=== PATIENT | female | born 1995 | race Caucasian/White ===

== ENCOUNTER 2018-03-21 09:28 | Emergency (ER) | payer OTHER ==
[2018-03-21 09:36] VITALS: BP 117/74
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
[2018-03-21] MEDS ORDERED: LET GEL TOPICAL 1 EA SYR TP ONE ×2 (10:21→10:23)
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
== END 2018-03-21 11:53 | disposition home or self-care (01) ==
DX: S00.83XA Contusion of other part of head, initial encounter (principal); S80.211A Abrasion, right knee, initial encounter; S40.212A Abrasion of left shoulder, initial encounter; W17.89XA Other fall from one level to another, initial encounter; Y93.83 Activity, rough housing and horseplay; R93.0 Abnormal findings on diagnostic imaging of skull and head, not elsewhere classified